=== PATIENT | female | born 1990 | race Caucasian/White ===

== ENCOUNTER 2022-02-17 08:05 | Emergency (ER) | payer OTHER, SELFPAY ==
[2022-02-17] VITALS (10 sets, daily range): BP systolic 117–179; BP diastolic 87–130; PULSE 60–82; RESP 18; TEMP 36.8; O2SAT 95–98; BMI 36.6
[2022-02-17 08:42] LABS: Microscopic, Urine URINE MICROSCOPIC (MICROSCOPIC)
[2022-02-17 08:44] LABS: Appearance,Urine SL CLOUDY (Clear); Blood, Urine Negative (Negative); Color,Urine YELLOW (Yellow); Glucose,Urine (UA) Negative (Negative); Ketones,Urine Negative (Negative); Leukocyte Esterase,Urine Negative (Negative); Nitrate,Urine Negative (Negative); PH,Urine 6.5 (5.0-8.5); Protein,Urine TRACE (Negative); Specific Gravity, Urine >= 1.030 (1.005-1.030)
[2022-02-17 08:52] LABS: Bilirubin,Urine 1+ (Negative)
--- NOTE | 2022-02-17 08:53 | HMH.EDGENADL ---
Discharge Plan Disposition Patient Disposition: Home, Self-Care Condition: Good Referrals Follow up/Referrals: Provider,Referral, MD [Primary Care Provider] - See instructions Activity Restrictions/Add. Instructions Additional Instructions/Restrictions: Take Phenergan as prescribed at outside hospital. Be sure to stay as hydrated as you can. If you have inability to tolerate any food or drink by mouth, or have worsening symptoms, return to the ED for further evaluation. Clinical Impressions Clinical Impression: Cannabis hyperemesis syndrome concurrent with and due to cannabis dependence Instructions Patient Instructions: DI for Acute Abdominal Pain Discharge ED Provider: Charli Huitron General Adult HPI General Chief complaint: Abdominal Pain Stated complaint: Persistant vomitting Time Seen by Provider: 02/17/22 08:21 Mode of Arrival: Ambulatory Source of Information: Patient Limitations: No Limitations History of Present Illness HPI narrative: This is a 31-year-old female with history of hypertension, depression, anxiety who is presenting with vomiting. Patient states that she took natural detox, approximately 6 days prior to arrival, since that time, she has been throwing up pretty consistently throughout the days. Vomiting is nonbloody, nonbilious, but associated with abdominal pain while she is vomiting that is epigastric and does not radiate. She is also had intermittent diarrhea. 9 out of 10 at its worst. She went to outside ED 3 days prior to arrival, was given nausea medication, PPI, but has not picked up the nausea medication. She went to outside ED 1 day prior to arrival, gave her GI cocktail, scanned her belly, keagan labs. Per report from patient, labs were normal, scan showed inflammation of my large intestine. Patient was discharged home with supportive care after improvement of symptoms with medications given in the ED, but has not yet picked up her nausea medications, so was throwing up again this morning. Denies fevers, chills, chest pain, shortness of breath, cough, chance of , vaginal bleeding or discharge, flank pain, dysuria, hematuria, hematochezia, or any other concerning symptoms. Related Data Allergies Allergy/AdvReac Type Severity Reaction Status Date / Time Sulfa (Sulfonamide Allergy Verified 02/17/22 09:58 Antibiotics) [facility] Disclaimer: The information contained in this section may have been updated after the patient was seen, as this information can be updated by other users. Social History Smoking Status: Unknown if ever smoked alcohol intake: current current occupational status: unemployed Travel in the last 8 weeks: None ROS Obtained: Yes All systems reviewed & no additional complaints except as documented Physical Exam General General appearance: alert and in no apparent distress Head Head exam: atraumatic, normocephalic and normal inspection Eye Eye exam: Present normal appearance, PERRL and EOMI ENT ENT exam: Present normal exam, normal oropharynx, mucous membranes moist, TM's normal bilaterally and normal external ear exam Neck Neck exam: Present normal inspection, full ROM and trachea midline; Absent meningismus or lymphadenopathy Chest Chest inspection: Present normal inspection and symmetric chest wall rise; Absent tenderness Respiratory Respiratory exam: Present normal lung sounds bilaterally; Absent respiratory distress Cardiovascular Cardiovascular exam: Present regular rate and normal rhythm; Absent JVD Abdominal Exam Abdominal exam: Present soft, tenderness and normal bowel sounds; Absent distention, guarding, rebound, rigidity, psoas sign, obturator sign, Luo's sign, Rovsing's sign or tenderness at McBurney's Point Abdominal tenderness: Present epigastrium Extremities Exam Extremities exam: Present normal inspection, full ROM and normal capillary refill; Absent calf tenderness Back Exam Back exam: Present normal inspection; Abs
[2022-02-17 08:54] LABS: Urine Pregnancy, HCG Qual. Negative (Negative)
--- NOTE | 2022-02-17 08:57 | PC.NURSE ---
Called and requested records from [facility]
[2022-02-17 09:01] LABS: Bacteria,Urine Trace /lpf; Squamous Epithelial Cell,Urine Occasional #/hpf (0-5)
--- NOTE | 2022-02-17 09:24 | PC.NURSE ---
Received records from [facility] and given to ASHIA MACARIO
--- NOTE | 2022-02-17 10:11 | PC.NURSE ---
checked on patient, she was resting on stretcher. friend at reports no needs. She also reports no needs at this time and is aware that we are waiting on test results.
[2022-02-17 10:15] LABS: Basophils # 0.1 K/mm3 (0-0.2); Basophils % 0.7 % (0.1-2.0); Eosinophils # 0.2 K/mm3 (0.0-0.4); Eosinophils % 1.1 % (0.1-12.0); Hematocrit 39.1 % (37.0-47.0); Hemoglobin 14.1 g/dL (12.2-16.2); Lymphocytes # 3.2 K/mm3 (0.7-4.5); Mean Corpuscular HGB Conc 36.2 g/dL (31.8-35.4); Mean Corpuscular Hemoglobin 31.1 pg (27.0-31.2); Mean Corpuscular Volume 85.7 fl (81-99); Mean Platelet Volume 8.7 fl (7.4-10.4); Monocytes # 0.9 K/mm3 (0.1-1.0); Monocytes % 5.7 % (1.7-9.3); Neutrophils # 10.8 K/mm3 (1.8-7.8); Neutrophils % 71.5 % (37.0-80.0); Platelet Count 348 K/mm3 (142-424); Red Blood Count 4.55 M/mm3 (4.20-5.40); Red Cell Distribution Width 14.2 % (11.5-17.5); White Blood Count 15.1 K/mm3 (4.8-10.8)
[2022-02-17 10:16] LABS: Chloride 102 mmol/L (98-107); Sodium 138 mmol/L (136-145)
[2022-02-17 10:17] LABS: Coronavirus 19, PCR Not Detected (NotDetected); Influenza A, PCR Not Detected (NotDetected); Influenza B, PCR Not Detected (NotDetected)
[2022-02-17 10:17] LABS: Potassium 3.5 mmoL/L (3.5-5.1)
[2022-02-17 10:19] LABS: Alanine Aminotransferase 21 U/L (12-78); Alkaline Phosphatase 55 U/L (38-126); Anion Gap 12.5 mEq/L (5-15); Aspartate Amino Transferase 41 U/L (14-36); Bilirubin,Total 0.5 mg/dl (0.2-1.3); Blood Urea Nitrogen 8 mg/dl (7-17); Carbon Dioxide 27 mmol/L (22.0-30.0); Creatinine Clearance Estimated 168 mL/min (50-200); Estimated Glomerular Filt Rate 98 ml/min (>60); GFR (African American) 119 ML/MIN (>60); MANUAL DIFFERENTIAL MANUAL DIFFERENTIAL (MANUAL DIFF)
[2022-02-17 10:20] LABS: Albumin Level 4.3 g/dl (3.5-5.0); Albumin/Globulin Ratio 1.3 (1.1-1.8); Calcium 8.7 mg/dl (8.4-10.2); Globulin 3.2 g/dL (1.3-3.2); Glucose 100 mg/dl (74-100); Lipase 86 U/L (23-300); Total Protein,Serum 7.5 g/dl (6.3-8.2)
--- NOTE | 2022-02-17 10:22 | CT_ITS ---
FINAL REPORT CLINICAL HISTORY: persistent N/V, concern for megacolon at OSH(?) COMPARISON: Outside CT exam from February 16, 2022 FINDINGS: Technique: The patient was injected with intravenous contrast. Oral contrast was administered. Axial images through the abdomen and pelvis were performed. This study was performed with techniques to keep radiation doses as low as reasonably achievable (ALARA). Individualized dose reduction techniques using automated exposure control or adjustment of mA and/or kV according to the patient's size were employed. Abdomen: The lung bases are clear. The liver is normal in size and attenuation. There is increased attenuation in the gallbladder of uncertain etiology, may represent contrast or gallstones. The spleen is unremarkable. The adrenals are normal. The pancreas is unremarkable. The kidneys enhance appropriately. The aorta is normal in caliber. There is no free fluid or adenopathy. Pelvis: The appendix is normal. The urinary bladder is unremarkable. There is no free fluid or adenopathy. IMPRESSION: Increased attenuation in the gallbladder of certain etiology, may represent contrast or gallstones. If indicated, right upper quadrant ultrasound may be helpful. Reviewed, Interpreted and Dictated by Chang Cleary III, MD Transcribed by Salima Posada Authenticated and [facility]
--- NOTE | 2022-02-17 10:28 | PC.NURSE ---
RADIOLOGY HERE TO TRANSPORT PT FOR CT
[2022-02-17 10:29] LABS: Eosinophils % 2 % (0-3); Lymphocytes % 22 % (10-50); Monocytes % 10 % (2-9); Neutrophils % 66 % (42-76); Total Cells Counted 100
[2022-02-17 10:30] LABS: Platelet Estimate Normal; RBC Morphology Normal
--- NOTE | 2022-02-17 11:41 | US_ITS ---
FINAL REPORT CLINICAL HISTORY: equivocal RUQ on CT. Reassess for intractable N/V COMPARISON: CT abdomen and pelvis dated 02/17/2022 FINDINGS: Sonographic images of the right upper quadrant were obtained. The pancreas is partially obscured.The liver has an unremarkable appearance. There is a 3 mm gallbladder polyp. There is no evidence of biliary ductal dilatation.The common duct measures 3 mm. Limited images of the right kidney are unremarkable. IMPRESSION: 3 mm gallbladder polyp. Reviewed, Interpreted and Dictated by Chang Cleary III, MD Transcribed by Monica Casanova Authenticated and [facility]
--- NOTE | 2022-02-17 12:47 | PC.NURSE ---
Checked on patient, she reports she has not had her US yet, but no other needs at this time. Calling Radiology to check on US status
--- NOTE | 2022-02-17 12:48 | PC.NURSE ---
RADIOLOGY CALLED ABOUT US
--- NOTE | 2022-02-17 12:50 | PC.NURSE ---
Pt up to US
--- NOTE | 2022-02-17 13:18 | PC.NURSE ---
pt returned from US
== END 2022-02-17 14:00 | disposition home or self-care (01) ==
PROVIDERS: Emergency Provider Emergency Medicine
DX: R11.2 Nausea with vomiting, unspecified (principal); R19.7 Diarrhea, unspecified; R10.13 Epigastric pain; Z20.822 Contact with and (suspected) exposure to COVID-19; I10 Essential (primary) hypertension; F32.A Depression, unspecified; F41.9 Anxiety disorder, unspecified; F12.10 Cannabis abuse, uncomplicated; Z88.2 Allergy status to sulfonamides
CPT/HCPCS: 74177; 76705; 80053; 81001; 81025; 83605; 83690; 85007; 85025; 99285; C9803; J2405; Q9967; U0003; U0005